=== PATIENT | female | born 1975 | race Caucasian/White ===

== ENCOUNTER 2020-11-28 04:24 | Emergency (ER) | payer MEDICAID ==
[~2020-11-28] VITALS: Ht 162.6 cm; Wt 68.0 kg
[2020-11-28] MEDS ORDERED: OMEP40CA21 PO (04:46)
[2020-11-28] MEDS ORDERED: LISI20TA28 PO (04:46)
[2020-11-28 04:50] LABS: BASOPHILS # (AUTO) 0.2 X10'3 (0-0.2); BASOPHILS % (AUTO) 1.1 % (0-1); EOSINOPHILS # (AUTO) 0.2 X10'3 (0-0.9); EOSINOPHILS % (AUTO) 1.3 % (0-6); HEMATOCRIT 43.8 % (35.0-45.0); HEMOGLOBIN 14.5 g/dl (12.0-16.0); LYMPHOCYTES # (AUTO) 4.1 X10'3 (1.1-4.8); MEAN CORPUSCULAR HEMOGLOBIN 36.9 PG (27.0-31.0); MEAN CORPUSCULAR HGB CONC 33.2 g/dL (33.0-36.5); MEAN PLATELET VOLUME 8.7 FL (7.4-10.4); MONOCYTES # (AUTO) 1.5 X10'3 (0-0.9); MONOCYTES % (AUTO) 9.3 % (2-12); NEUTROPHILS # (AUTO) 10.3 X10'3 (1.8-7.7); NEUTROPHILS % (AUTO) 63.3 % (42-75); PLATELET COUNT 300 X10'3 (140-440); RED BLOOD COUNT 3.95 X10'6 (4.20-5.60); RED CELL DISTRIBUTION WIDTH 17.2 % (11.5-14.5); WHITE BLOOD COUNT 16.3 X10'3 (4.5-11.0)
[2020-11-28] MEDS ORDERED: ondansetron/PF 4mg/2ml inj IV ONE ×2 (04:50→09:40)
[2020-11-28] MEDS ORDERED: normal saline 1000ML IV soln IVB ONE (04:50)
[2020-11-28 04:53] LABS: URINE HCG NEGATIVE (NEG)
[2020-11-28 04:57] LABS: CLARITY,URINE SLIGHTLY CLOUDY (Clear); COLOR,URINE YELLOW (Yellow); GLUCOSE, URINE NEGATIVE (Neg); KETONES,URINE NEGATIVE (Neg); LEUKOCYTE ESTERASE ,URINE NEGATIVE (Neg); NITRITES, URINE POSITIVE (Neg); OCCULT BLOOD,URINE TRACE-INTACT (Neg); PROTEIN,URINE TRACE mg/dl (Neg)
[2020-11-28] MEDS: morphine 4 MG/ML inj SYRINge IV PRN ×3 (05:00→07:56)
[2020-11-28 05:02] LABS: UA COLLECTION TYPE CLN CATCH MIDSTREAM
[2020-11-28 05:03] LABS: ALANINE AMINOTRANSFERASE 56 U/L (12-78); ALBUMIN 3.5 G/DL (3.4-5.0); ALKALINE PHOSPHATASE 172 IU/L (46-116); ANION GAP 11 (8-16); ASPARTATE AMINO TRANSFERASE 128 U/L (10-37); BILIRUBIN,TOTAL 0.9 MG/DL (0.1-1.0); BLOOD UREA NITROGEN 7 MG/DL (7-18); BUN/CREATININE RATIO 8.2 (6.6-38.0); CALCIUM 8.4 MG/DL (8.5-10.1); CHLORIDE 105 MMOL/L (99-107); CREATININE 0.85 MG/DL (0.40-0.90); GLUCOSE 106 MG/DL (70-104); POTASSIUM 3.7 MMOL/L (3.5-5.1); SODIUM 140 MMOL/L (135-145); TOTAL CARBON DIOXIDE 24.4 MMOL/L (24-32); TOTAL PROTEIN 7.1 G/DL (6.4-8.2); eGFR 73 ML/MIN
[2020-11-28 05:05] LABS: WBC,URINE 0-4 /HPF (0-4)
[2020-11-28 05:06] LABS: BACTERIA,URINE 4+ /HPF (Neg); SQUAMOUS EPITHELIAL CELL,UR FEW /LPF (FEW)
[2020-11-28] MEDS ORDERED: haloperidol lactate 5mg/ml inj IM ONE (05:10)
[2020-11-28 05:15] LABS: LIPASE 2273 U/L (73-393)
[2020-11-28 05:18] LABS: PLATELET ESTIMATE NORMAL
[2020-11-28 05:19] LABS: ANISOCYTOSIS 1+
[2020-11-28 05:28] LABS: ETHANOL < 0.010 GM/DL (0.0-0.010)
[2020-11-28] MEDS ORDERED: normal saline 1000ml 1,000 ML IV ONE (06:15)
[2020-11-28 08:23] LABS: URINE AMPHETAMINE SCREEN NEGATIVE (Neg); URINE BARBITUATE SCREEN NEGATIVE (Neg); URINE BENZODIAZEPINES SCREEN NEGATIVE (Neg); URINE CANNABINOID SCREEN NEGATIVE (Neg); URINE COCAINE SCREEN NEGATIVE (Neg); URINE METHADONE SCREEN NEGATIVE (Neg); URINE OPIATE SCREEN POSITIVE (Neg); URINE PHENCYCLIDINE SCREEN NEGATIVE (Neg)
[2020-11-28] MEDS ORDERED: OXYC-658 PO (09:39)
[2020-11-28] MEDS ORDERED: ONDA4TAB6 PO (09:39)
[2020-11-28] MEDS ORDERED: OXYcodone (OXYCONTIN) Ext Release 15 MG TAB.SR.12H PO ONE (09:40)
[2020-11-28 09:56] VITALS: BP 165/102
== END 2020-11-28 10:03 | disposition home or self-care (01) ==
LOC: ER 04:25
DX: K85.90 Acute pancreatitis without necrosis or infection, unspecified (principal); R10.84 Generalized abdominal pain; R11.2 Nausea with vomiting, unspecified; R19.7 Diarrhea, unspecified; I10 Essential (primary) hypertension; K21.9 Gastro-esophageal reflux disease without esophagitis; F17.200 Nicotine dependence, unspecified, uncomplicated; Z72.89 Other problems related to lifestyle; Z98.890 Other specified postprocedural states; Z79.899 Other long term (current) drug therapy
CPT/HCPCS: 36415; 74176; 80053; 80305; 80320; 81001; 81025; 83690; 85008; 85025; 87088; 96361; 96372; 96374; 96375; 96376; 99285; J1630; J2270; J2405; J7030; 87077; 87186

== ENCOUNTER 2020-12-13 12:34 | Emergency (ER) | payer MEDICAID ==
[~2020-12-13] VITALS: Ht 162.6 cm; Wt 68.2 kg
[~2020-12-13 12:34] MED LIST: LISI20TA28 PO; OMEP40CA21 PO; ONDA4TAB6 PO; OXYC-658 PO
[2020-12-13 12:54] VITALS: BP 118/87
[2020-12-13] MEDS ORDERED: ALBU6.7H9 INH (13:15)
== END 2020-12-13 13:17 | disposition home or self-care (01) ==
LOC: ER 12:34
DX: J06.9 Acute upper respiratory infection, unspecified (principal); Z20.822 Contact with and (suspected) exposure to COVID-19; R05 Cough; I10 Essential (primary) hypertension; J45.909 Unspecified asthma, uncomplicated; K21.9 Gastro-esophageal reflux disease without esophagitis; F17.200 Nicotine dependence, unspecified, uncomplicated; Z98.890 Other specified postprocedural states; Z72.89 Other problems related to lifestyle; Z79.899 Other long term (current) drug therapy
CPT/HCPCS: 71045; 99283

== ENCOUNTER 2020-12-16 09:53 | Emergency (ER) | payer MEDICAID ==
[~2020-12-16] VITALS: Ht 162.6 cm; Wt 68.2 kg
[~2020-12-16 09:53] MED LIST changes: +ALBU6.7H9 INH
[2020-12-16] MEDS ORDERED: FLUC150T66 PO (10:32)
== END 2020-12-16 11:56 | disposition home or self-care (01) ==
LOC: ER 09:53
DX: T28.3XXA Burn of internal genitourinary organs, initial encounter (principal); N39.0 Urinary tract infection, site not specified; I10 Essential (primary) hypertension; J45.909 Unspecified asthma, uncomplicated; K21.9 Gastro-esophageal reflux disease without esophagitis; Z98.890 Other specified postprocedural states; Z72.89 Other problems related to lifestyle; Z79.899 Other long term (current) drug therapy; Z79.2 Long term (current) use of antibiotics; X08.8XXA Exposure to other specified smoke, fire and flames, initial encounter; Y93.89 Activity, other specified; Y92.89 Other specified places as the place of occurrence of the external cause; Y99.8 Other external cause status
CPT/HCPCS: 99283

== ENCOUNTER 2022-09-27 17:37 | Emergency (ER) | payer MEDICAID ==
[~2022-09-27] VITALS: Ht 165.1 cm; Wt 70.0 kg
[~2022-09-27 17:37] MED LIST changes: +ALBU6.7H14 INH; -ALBU6.7H9 INH; -OXYC-658 PO
[2022-09-27 17:54] LABS: BASOPHILS # (AUTO) 0.2 X10'3 (0-0.2); BASOPHILS % (AUTO) 1.3 % (0-1); EOSINOPHILS # (AUTO) 0.2 X10'3 (0-0.9); EOSINOPHILS % (AUTO) 1.8 % (0-6); HEMATOCRIT 43.8 % (35.0-45.0); HEMOGLOBIN 14.4 g/dl (12.0-16.0); LYMPHOCYTES # (AUTO) 4.4 X10'3 (1.1-4.8); LYMPHOCYTES % (AUTO) 36.6 % (21-51); MEAN CORPUSCULAR HEMOGLOBIN 33.9 PG (27.0-31.0); MEAN CORPUSCULAR VOLUME 102.9 FL (78-98); MEAN PLATELET VOLUME 9.1 FL (7.4-10.4); MONOCYTES # (AUTO) 0.8 X10'3 (0-0.9); NEUTROPHILS # (AUTO) 6.4 X10'3 (1.8-7.7); NEUTROPHILS % (AUTO) 53.3 % (42-75); PLATELET COUNT 250 X10'3 (140-440); RED BLOOD COUNT 4.26 X10'6 (4.20-5.60); RED CELL DISTRIBUTION WIDTH 20.2 % (11.5-14.5); WHITE BLOOD COUNT 12.1 X10'3 (4.5-11.0)
[2022-09-27 18:08] VITALS: BP 135/97
[2022-09-27 18:08] LABS: ALANINE AMINOTRANSFERASE 86 U/L (12-78); ALBUMIN 3.2 G/DL (3.4-5.0); ALBUMIN/GLOBULIN RATIO 0.8 (1.1-1.5); ALKALINE PHOSPHATASE 193 IU/L (46-116); ANION GAP 14 (8-16); ASPARTATE AMINO TRANSFERASE 255 U/L (10-37); BILIRUBIN,TOTAL 0.7 MG/DL (0.1-1.0); BLOOD UREA NITROGEN 5 MG/DL (7-18); BUN/CREATININE RATIO 6.7 (10.0-20.0); CHLORIDE 104 MMOL/L (99-107); CREATININE 0.75 MG/DL (0.40-0.90); GLUCOSE 106 MG/DL (70-104); POTASSIUM 3.4 MMOL/L (3.5-5.1); SODIUM 142 MMOL/L (135-145); TOTAL CARBON DIOXIDE 24.2 MMOL/L (24-32); TOTAL PROTEIN 7.3 G/DL (6.4-8.2); eGFR 84 ML/MIN
[2022-09-27 18:29] LABS: CLARITY,URINE SLIGHTLY CLOUDY (Clear); COLOR,URINE YELLOW (Yellow); GLUCOSE, URINE NEGATIVE (Neg); KETONES,URINE NEGATIVE (Neg); LEUKOCYTE ESTERASE ,URINE TRACE (Neg); NITRITES, URINE NEGATIVE (Neg); OCCULT BLOOD,URINE NEGATIVE (Neg); PH,URINE 6.5 (4.8-8.0); PROTEIN,URINE NEGATIVE (Neg); UROBILINOGEN,URINE 0.2 E.U/dL (0.2-1.0)
[2022-09-27 18:32] LABS: URINE HCG NEGATIVE (NEG)
[2022-09-27 18:48] LABS: LARGE PLATELETS FEW; PLATELET ESTIMATE NORMAL
[2022-09-27 18:49] LABS: ANISOCYTOSIS 3+
[2022-09-27 19:07] LABS: RBC,URINE NONE SEEN /HPF (0-2); UA COLLECTION TYPE CLN CATCH MIDSTREAM; WBC,URINE 0-4 /HPF (0-4)
[2022-09-27 19:08] LABS: BACTERIA,URINE 4+ /HPF (Neg); MUCUS STRANDS NONE SEEN /LPF (Neg); SQUAMOUS EPITHELIAL CELL,UR MANY /LPF (FEW)
== END 2022-09-27 20:12 | disposition left against medical advice (07) ==
LOC: ER 17:38
DX: R07.9 Chest pain, unspecified (principal); Z53.21 Procedure and treatment not carried out due to patient leaving prior to being seen by health care provider
CPT/HCPCS: 36415; 80053; 81001; 81025; 83880; 84484; 85008; 85025; 93005; 99281

== ENCOUNTER 2024-05-29 11:46 | Emergency (ER) | payer MEDICAID, OTHER ==
[~2024-05-29] VITALS: Ht 162.6 cm; Wt 63.6 kg
[2024-05-29 13:07] VITALS: BP 136/70; PULSE 70; RESP 17; TEMP 98; O2SAT 99
== END 2024-05-29 13:07 | disposition home or self-care (01) ==
LOC: ER 11:46
DX: S93.692A Other sprain of left foot, initial encounter (principal); S93.492A Sprain of other ligament of left ankle, initial encounter; I10 Essential (primary) hypertension; J45.909 Unspecified asthma, uncomplicated; K21.9 Gastro-esophageal reflux disease without esophagitis; F10.90 Alcohol use, unspecified, uncomplicated; Z79.899 Other long term (current) drug therapy; Y90.9 Presence of alcohol in blood, level not specified; W18.40XA Slipping, tripping and stumbling without falling, unspecified, initial encounter; Y93.89 Activity, other specified; Y92.89 Other specified places as the place of occurrence of the external cause; Y99.8 Other external cause status
CPT/HCPCS: 73610; 73630; 99284; A6449

== ENCOUNTER 2024-06-22 12:22 | Inpatient (IN) | payer OTHER ==
[~2024-06-22] VITALS: Ht 162.6 cm; Wt 62.3 kg
[2024-06-22 12:57] LABS: BASOPHILS # (AUTO) 0.1 X10'3 (0-0.2); BASOPHILS % (AUTO) 0.8 % (0-1); EOSINOPHILS # (AUTO) 0.1 X10'3 (0-0.9); HEMATOCRIT 39.9 % (35.0-45.0); HEMOGLOBIN 13.4 g/dl (12.0-16.0); LYMPHOCYTES # (AUTO) 2.1 X10'3 (1.1-4.8); LYMPHOCYTES % (AUTO) 23.8 % (21-51); MEAN CORPUSCULAR HEMOGLOBIN 37.7 PG (27.0-31.0); MEAN CORPUSCULAR HGB CONC 33.7 g/dL (33.0-36.5); MEAN CORPUSCULAR VOLUME 112.1 FL (78-98); MEAN PLATELET VOLUME 9.1 FL (7.4-10.4); MONOCYTES # (AUTO) 0.6 X10'3 (0-0.9); MONOCYTES % (AUTO) 6.9 % (2-12); NEUTROPHILS % (AUTO) 67.5 % (42-75); PLATELET COUNT 246 X10'3 (140-440); RED BLOOD COUNT 3.56 X10'6 (4.20-5.60); RED CELL DISTRIBUTION WIDTH 15.4 % (11.5-14.5); WHITE BLOOD COUNT 8.8 X10'3 (4.5-11.0)
[2024-06-22 13:09] LABS: ALBUMIN 3.4 G/DL (3.4-5.0); ANION GAP 8 (8-16); BLOOD UREA NITROGEN 8 MG/DL (7-18); BUN/CREATININE RATIO 15.1 (10.0-20.0); CALCIUM 8.8 MG/DL (8.5-10.1); CHLORIDE 104 MMOL/L (99-107); CREATININE 0.53 MG/DL (0.40-0.90); GLUCOSE 96 MG/DL (70-104); POTASSIUM 4.4 MMOL/L (3.5-5.1); SODIUM 142 MMOL/L (135-145); TOTAL CARBON DIOXIDE 30.1 MMOL/L (24-32); eCRCL 113 ML/MIN; eGFR > 90 ML/MIN
[2024-06-22 13:13] LABS: APTT 25 SECONDS (22-32); INR 1.1 INR; PROTHROMBIN TIME 11.5 SECONDS (9.0-12.0)
[2024-06-22] MEDS: GADOTERATE MEGLUMINE 7.5 MMOL/15 ML VIAL IV ONE (22:13)
[2024-06-23] MEDS ORDERED: ondansetron/PF 4mg/2ml inj IV PRN (00:20)
[2024-06-23] MEDS ORDERED: docusate sod 100mg capsule PO PRN (00:20)
[2024-06-23] MEDS ORDERED: potassium Cl 40MEQ/1/2NS 520ml 520 ML IV PRN (00:20)
[2024-06-23] MEDS ORDERED: magnesium sulf-water 4G/100mL 100 ML IV PRN (00:20)
[2024-06-23] MEDS ORDERED: magnesium Cl slow-release 64mg tablet PO PRN (00:20)
[2024-06-23] MEDS ORDERED: potassium Cl 20 mEq SR tablet PO PRN ×2 (00:20)
[2024-06-23] MEDS ORDERED: magnesium sulf-water 2g/50mL 50 ML IV PRN (00:20)
[2024-06-23] MEDS ORDERED: magnesium hydroxide 30ml (MOM) UD suspension PO PRN (00:20)
[2024-06-23] MEDS ORDERED: NO HOME MEDS (00:50)
[2024-06-23 03:34] LABS: % IRON SATURATION 34 % (11-46); IRON 75 UG/DL (49-151); TOTAL IRON BINDING CAPACITY 222 UG/DL (259-388)
[2024-06-23 03:45] LABS: POTASSIUM 4.4 MMOL/L (3.5-5.1)
[2024-06-23 06:59] LABS: ABSOLUTE RETICS # 43200 /CUMM (23000-93000); BASOPHILS # (AUTO) 0.1 X10'3 (0-0.2); BASOPHILS % (AUTO) 1.1 % (0-1); EOSINOPHILS # (AUTO) 0.2 X10'3 (0-0.9); EOSINOPHILS % (AUTO) 2.1 % (0-6); HEMATOCRIT 35.3 % (35.0-45.0); HEMOGLOBIN 11.9 g/dl (12.0-16.0); LYMPHOCYTES # (AUTO) 2.4 X10'3 (1.1-4.8); LYMPHOCYTES % (AUTO) 31.1 % (21-51); MEAN CORPUSCULAR HEMOGLOBIN 37.5 PG (27.0-31.0); MEAN CORPUSCULAR HGB CONC 33.8 g/dL (33.0-36.5); MEAN CORPUSCULAR VOLUME 111.2 FL (78-98); MONOCYTES # (AUTO) 0.7 X10'3 (0-0.9); MONOCYTES % (AUTO) 9.1 % (2-12); NEUTROPHILS # (AUTO) 4.5 X10'3 (1.8-7.7); NEUTROPHILS % (AUTO) 56.6 % (42-75); PLATELET COUNT 195 X10'3 (140-440); RED BLOOD COUNT 3.18 X10'6 (4.20-5.60); RED CELL DISTRIBUTION WIDTH 15.3 % (11.5-14.5); RETICULOCYTE % (AUTO) 1.4 % (0.5-1.5); WHITE BLOOD COUNT 7.9 X10'3 (4.5-11.0)
[2024-06-23] MEDS: K and/or MAG REPLACEMENT MC SCH (08:00)
[2024-06-23 08:01] LABS: PLATELET ESTIMATE NORMAL; TOTAL CELLS COUNTED 100
[2024-06-23 08:16] VITALS: BP 151/93; PULSE 69; RESP 16; TEMP 98.4; O2SAT 99
[2024-06-23] MEDS: heparin, porcine 5000 units/ml vial SQ SCH (08:50)
[2024-06-23] MEDS: folic acid 1mg tablet PO SCH (08:50)
[2024-06-23] MEDS: cyanocobalamin 500mcg tablet PO SCH (08:50)
[2024-06-23 08:51] LABS: HIV ANTIBODY 1&2 RAPID NON-REACTIVE (Neg)
[2024-06-23] MEDS: triamcinolone acet 0.1% cream 15gm TP SCH (08:51)
[2024-06-23 10:00] VITALS: BP 154/96; PULSE 71; RESP 14; TEMP 98.3; O2SAT 99
[2024-06-23 11:00] LABS: BILIRUBIN,URINE NEGATIVE (Neg); CLARITY,URINE CLEAR (Clear); COLOR,URINE YELLOW (Yellow); GLUCOSE, URINE NEGATIVE (Neg); KETONES,URINE NEGATIVE (Neg); LEUKOCYTE ESTERASE ,URINE NEGATIVE (Neg); NITRITES, URINE NEGATIVE (Neg); OCCULT BLOOD,URINE NEGATIVE (Neg); PH,URINE 7.5 (4.8-8.0); PROTEIN,URINE NEGATIVE (Neg)
[2024-06-23] MEDS: FLU VACC TS2024-25(6MOS UP)/PF 45 MCG/0.5 ML SYRINGE IMVAC ONE (11:05)
[2024-06-23 11:10] LABS: UA COLLECTION TYPE VOIDED
[2024-06-23 13:45] VITALS: RESP 20; O2SAT 98
[2024-06-23] MEDS: GADOTERATE MEGLUMINE 7.5 MMOL/15 ML VIAL IV ONE (17:45)
[2024-06-23 18:00] VITALS: BP 187/97; PULSE 80; RESP 16; TEMP 98.2; O2SAT 96
[2024-06-23] MEDS: acetaminophen 325mg tablet PO PRN (19:29)
[2024-06-23 20:00] VITALS: RESP 16; O2SAT 96
[2024-06-23 22:00] VITALS: BP 134/87; PULSE 84; RESP 16; TEMP 98.1; O2SAT 95
[2024-06-24 06:00] VITALS: BP 149/91; PULSE 74; RESP 16; TEMP 97.9; O2SAT 96
[2024-06-24 06:15] LABS: BASOPHILS # (AUTO) 0.1 X10'3 (0-0.2); BASOPHILS % (AUTO) 0.9 % (0-1); EOSINOPHILS # (AUTO) 0.2 X10'3 (0-0.9); EOSINOPHILS % (AUTO) 2.2 % (0-6); LYMPHOCYTES # (AUTO) 2.3 X10'3 (1.1-4.8); LYMPHOCYTES % (AUTO) 30.9 % (21-51); MEAN CORPUSCULAR HEMOGLOBIN 37.3 PG (27.0-31.0); MEAN CORPUSCULAR HGB CONC 33.3 g/dL (33.0-36.5); MEAN PLATELET VOLUME 9.8 FL (7.4-10.4); MONOCYTES # (AUTO) 0.7 X10'3 (0-0.9); MONOCYTES % (AUTO) 9.6 % (2-12); NEUTROPHILS # (AUTO) 4.1 X10'3 (1.8-7.7); NEUTROPHILS % (AUTO) 56.4 % (42-75); PLATELET COUNT 200 X10'3 (140-440); RED BLOOD COUNT 3.21 X10'6 (4.20-5.60); WHITE BLOOD COUNT 7.4 X10'3 (4.5-11.0)
[2024-06-24 06:27] LABS: ALANINE AMINOTRANSFERASE 26 U/L (12-78); ALBUMIN 2.6 G/DL (3.4-5.0); ALBUMIN/GLOBULIN RATIO 0.7 (1.1-1.5); ALKALINE PHOSPHATASE 169 IU/L (46-116); ANION GAP 6 (8-16); ASPARTATE AMINO TRANSFERASE 44 U/L (10-37); BILIRUBIN,TOTAL 0.6 MG/DL (0.1-1.0); BLOOD UREA NITROGEN 9 MG/DL (7-18); CALCIUM 8.6 MG/DL (8.5-10.1); CHLORIDE 107 MMOL/L (99-107); GLUCOSE 90 MG/DL (70-104); SODIUM 141 MMOL/L (135-145); TOTAL CARBON DIOXIDE 28.1 MMOL/L (24-32); TOTAL PROTEIN 6.2 G/DL (6.4-8.2)
[2024-06-24 06:35] LABS: BUN/CREATININE RATIO 24.3 (10.0-20.0); CREATININE 0.37 MG/DL (0.40-0.90); eCRCL 162 ML/MIN; eGFR > 90 ML/MIN
[2024-06-24 09:35] VITALS: BP 124/77; PULSE 71; RESP 17; TEMP 97.4; O2SAT 95
[2024-06-24 09:35] LABS: GLUCOSE,CSF 61 MG/DL (40-75); TOTAL PROTEIN,CSF 32 MG/DL (15-45)
[2024-06-24 10:11] LABS: APPEARANCE,CSF CLEAR; CSF RBC 1 /CU MM (0); CSF SUPERNATANT COLOR COLORLESS; CSF VOLUME 15 ML; CSF WBC CT 1 /CU MM (0-5); TUBE# COUNTED 1
[2024-06-24 10:15] VITALS: RESP 16; O2SAT 95
[2024-06-24 10:18] LABS: APPEARANCE,CSF CLEAR; CSF RBC 0 /CU MM (0); CSF SUPERNATANT COLOR COLORLESS; CSF VOLUME 15 ML; CSF WBC CT 0 /CU MM (0-5); TUBE# COUNTED 4
[2024-06-24] MEDS: cyanocobalamin 1,000 mcg/ml inj IM SCH (10:40)
[2024-06-24 13:19] LABS: ANTINUCLEAR ANTIBODIES Negative (Negative)
[2024-06-24] MEDS: prednisone 10mg tablet PO ONE ×2 (14:26→21:37)
[2024-06-24] MEDS: ibuprofen 200mg tablet PO ONE (14:27)
[2024-06-24] MEDS: acetaminophen 325mg tablet PO PRN (14:27)
[2024-06-24] MEDS: prednisone 10mg tablet PO SCH (15:08)
[2024-06-24 18:30] VITALS: BP 158/85; PULSE 71; RESP 15; TEMP 97.9; O2SAT 97
[2024-06-24] MEDS: Melatonin 3mg tablet PO SCH (21:37)
[2024-06-24 22:00] VITALS: BP 143/90; PULSE 73; RESP 16; TEMP 97.9; O2SAT 96
[2024-06-25 05:26] LABS: HBSAG SCREEN Negative (Negative); HEP B CORE AB, TOT Negative (Negative); HEPATITIS C VIRUS ANTIBODY Non Reactive (Non Reactive)
[2024-06-25 06:00] VITALS: BP 135/86; PULSE 68; RESP 16; TEMP 98; O2SAT 97
[2024-06-25 06:48] LABS: BASOPHILS # (AUTO) 0.1 X10'3 (0-0.2); BASOPHILS % (AUTO) 1.2 % (0-1); EOSINOPHILS % (AUTO) 0 % (0-6); HEMATOCRIT 36.8 % (35.0-45.0); HEMOGLOBIN 12.1 g/dl (12.0-16.0); LYMPHOCYTES # (AUTO) 1.6 X10'3 (1.1-4.8); MEAN CORPUSCULAR HEMOGLOBIN 36.9 PG (27.0-31.0); MEAN PLATELET VOLUME 9.8 FL (7.4-10.4); MONOCYTES # (AUTO) 0.5 X10'3 (0-0.9); MONOCYTES % (AUTO) 5.1 % (2-12); NEUTROPHILS # (AUTO) 8.4 X10'3 (1.8-7.7); NEUTROPHILS % (AUTO) 78.7 % (42-75); PLATELET COUNT 218 X10'3 (140-440); RED BLOOD COUNT 3.28 X10'6 (4.20-5.60); RED CELL DISTRIBUTION WIDTH 15.1 % (11.5-14.5); WHITE BLOOD COUNT 10.7 X10'3 (4.5-11.0)
[2024-06-25 07:16] LABS: ALANINE AMINOTRANSFERASE 27 U/L (12-78); ALBUMIN 2.7 G/DL (3.4-5.0); ALBUMIN/GLOBULIN RATIO 0.7 (1.1-1.5); ALKALINE PHOSPHATASE 161 IU/L (46-116); ANION GAP 5 (8-16); ASPARTATE AMINO TRANSFERASE 41 U/L (10-37); BILIRUBIN,TOTAL 0.5 MG/DL (0.1-1.0); BLOOD UREA NITROGEN 12 MG/DL (7-18); CALCIUM 8.6 MG/DL (8.5-10.1); CHLORIDE 108 MMOL/L (99-107); GLUCOSE 123 MG/DL (70-104); MAGNESIUM 1.9 MG/DL (1.5-2.4); POTASSIUM 4.8 MMOL/L (3.5-5.1); SODIUM 139 MMOL/L (135-145); TOTAL CARBON DIOXIDE 26.5 MMOL/L (24-32); TOTAL PROTEIN 6.6 G/DL (6.4-8.2); eCRCL 100 ML/MIN; eGFR > 90 ML/MIN
[2024-06-25 07:26] LABS: TRANSFERRIN 194 mg/dL (192-364)
[2024-06-25 09:40] VITALS: RESP 16; O2SAT 97
[2024-06-25] MEDS: prednisone 10mg tablet PO ONE ×3 (09:47→17:48)
[2024-06-25 10:00] VITALS: BP 147/84; PULSE 93; RESP 15; TEMP 98.2; O2SAT 97
[2024-06-25 18:30] VITALS: BP 131/84; PULSE 100; RESP 16; TEMP 97.8; O2SAT 96
[2024-06-25] MEDS ORDERED: prednisone 10mg tablet PO ONE (21:00)
[2024-06-25 22:00] VITALS: BP 155/83; PULSE 96; RESP 18; TEMP 98.2; O2SAT 92
[2024-06-26 06:00] VITALS: BP 139/86; PULSE 65; RESP 16; TEMP 97.7; O2SAT 98
[2024-06-26 06:19] LABS: HEMOGLOBIN A1C 4.5 % (4.5-6.2)
[2024-06-26 06:59] LABS: ALANINE AMINOTRANSFERASE 30 U/L (12-78); ALBUMIN 2.9 G/DL (3.4-5.0); ALBUMIN/GLOBULIN RATIO 0.8 (1.1-1.5); ALKALINE PHOSPHATASE 144 IU/L (46-116); ANION GAP 6 (8-16); ASPARTATE AMINO TRANSFERASE 53 U/L (10-37); BILIRUBIN,TOTAL 0.3 MG/DL (0.1-1.0); BLOOD UREA NITROGEN 13 MG/DL (7-18); CALCIUM 8.7 MG/DL (8.5-10.1); CHLORIDE 109 MMOL/L (99-107); CREATININE 0.52 MG/DL (0.40-0.90); GLUCOSE 94 MG/DL (70-104); MAGNESIUM 2.1 MG/DL (1.5-2.4); POTASSIUM 4.3 MMOL/L (3.5-5.1); SODIUM 142 MMOL/L (135-145); TOTAL CARBON DIOXIDE 26.8 MMOL/L (24-32); TOTAL PROTEIN 6.6 G/DL (6.4-8.2); eCRCL 115 ML/MIN; eGFR > 90 ML/MIN
[2024-06-26] MEDS ORDERED: prednisone 10mg tablet PO ONE ×3 (07:00→21:00)
[2024-06-26 07:20] LABS: BASOPHILS # (AUTO) 0.1 X10'3 (0-0.2); BASOPHILS % (AUTO) 0.6 % (0-1); EOSINOPHILS % (AUTO) 0.2 % (0-6); HEMATOCRIT 37.2 % (35.0-45.0); HEMOGLOBIN 12.1 g/dl (12.0-16.0); LYMPHOCYTES % (AUTO) 20.9 % (21-51); MEAN CORPUSCULAR HEMOGLOBIN 36.4 PG (27.0-31.0); MEAN CORPUSCULAR HGB CONC 32.5 g/dL (33.0-36.5); MEAN CORPUSCULAR VOLUME 111.9 FL (78-98); MEAN PLATELET VOLUME 9.1 FL (7.4-10.4); MONOCYTES % (AUTO) 10.2 % (2-12); NEUTROPHILS # (AUTO) 6.7 X10'3 (1.8-7.7); NEUTROPHILS % (AUTO) 68.1 % (42-75); PLATELET COUNT 231 X10'3 (140-440); RED BLOOD COUNT 3.32 X10'6 (4.20-5.60); RED CELL DISTRIBUTION WIDTH 14.9 % (11.5-14.5); WHITE BLOOD COUNT 9.8 X10'3 (4.5-11.0)
[2024-06-26 08:00] VITALS: RESP 16; O2SAT 98
[2024-06-26] MEDS: methylPREDNISolone SOD SUCC 1000 MG in D5W 50ml IVPB (58ML) IV SCH (08:49)
[2024-06-26 10:00] VITALS: BP 131/87; PULSE 76; RESP 18; TEMP 98.1; O2SAT 99
[2024-06-26] MEDS: morphine 2 MG/ML inj. syringe IV PRN (17:53)
[2024-06-26 18:30] VITALS: BP 138/89; PULSE 83; RESP 16; TEMP 97.9; O2SAT 95
[2024-06-26] MEDS: mag hydrox/Alum hydrox/simeth 30ml oral suspension PO PRN (19:33)
[2024-06-26 22:00] VITALS: BP 148/88; PULSE 76; RESP 18; TEMP 97.6; O2SAT 96
[2024-06-27 06:00] VITALS: BP 135/84; PULSE 80; RESP 18; TEMP 97.9; O2SAT 95
[2024-06-27] MEDS ORDERED: prednisone 10mg tablet PO ONE ×3 (07:00→21:00)
[2024-06-27 07:06] LABS: BASOPHILS % (AUTO) 0.1 % (0-1); EOSINOPHILS % (AUTO) 0 % (0-6); HEMATOCRIT 39.1 % (35.0-45.0); HEMOGLOBIN 12.7 g/dl (12.0-16.0); LYMPHOCYTES # (AUTO) 1.8 X10'3 (1.1-4.8); LYMPHOCYTES % (AUTO) 13.3 % (21-51); MEAN CORPUSCULAR HGB CONC 32.5 g/dL (33.0-36.5); MEAN CORPUSCULAR VOLUME 110.7 FL (78-98); MEAN PLATELET VOLUME 9.7 FL (7.4-10.4); MONOCYTES # (AUTO) 1.6 X10'3 (0-0.9); MONOCYTES % (AUTO) 11.8 % (2-12); NEUTROPHILS # (AUTO) 10.3 X10'3 (1.8-7.7); NEUTROPHILS % (AUTO) 74.8 % (42-75); PLATELET COUNT 256 X10'3 (140-440); RED BLOOD COUNT 3.53 X10'6 (4.20-5.60); RED CELL DISTRIBUTION WIDTH 14.8 % (11.5-14.5); WHITE BLOOD COUNT 13.8 X10'3 (4.5-11.0)
[2024-06-27 07:47] VITALS: RESP 18; O2SAT 95
[2024-06-27 07:47] LABS: ALANINE AMINOTRANSFERASE 41 U/L (12-78); ALBUMIN 2.9 G/DL (3.4-5.0); ALBUMIN/GLOBULIN RATIO 0.7 (1.1-1.5); ALKALINE PHOSPHATASE 135 IU/L (46-116); ANION GAP 9 (8-16); ASPARTATE AMINO TRANSFERASE 60 U/L (10-37); BILIRUBIN,TOTAL 0.2 MG/DL (0.1-1.0); BLOOD UREA NITROGEN 18 MG/DL (7-18); BUN/CREATININE RATIO 36.7 (10.0-20.0); CALCIUM 8.7 MG/DL (8.5-10.1); CHLORIDE 107 MMOL/L (99-107); CREATININE 0.49 MG/DL (0.40-0.90); GLUCOSE 84 MG/DL (70-104); POTASSIUM 4.3 MMOL/L (3.5-5.1); SODIUM 142 MMOL/L (135-145); TOTAL CARBON DIOXIDE 26.2 MMOL/L (24-32); TOTAL PROTEIN 6.8 G/DL (6.4-8.2); eCRCL 123 ML/MIN; eGFR > 90 ML/MIN
[2024-06-27 10:00] VITALS: BP 139/83; PULSE 85; RESP 16; TEMP 98.8; O2SAT 97
[2024-06-27] MEDS: normal saline 1000ml 1,000 ML IV ONE (12:45)
[2024-06-27] MEDS: morphine 2 MG/ML inj. syringe IV PRN (16:48)
[2024-06-27 18:00] VITALS: BP 132/79; PULSE 76; RESP 16; TEMP 98.7; O2SAT 97
[2024-06-27 22:00] VITALS: BP 132/84; PULSE 90; RESP 16; TEMP 98.8; O2SAT 97
[2024-06-27] MEDS: benzonatate 100mg capsule PO PRN (22:51)
[2024-06-28 06:00] VITALS: BP 126/81; PULSE 80; RESP 16; TEMP 98.2; O2SAT 97
[2024-06-28 06:01] LABS: BASOPHILS % (AUTO) 0.1 % (0-1); EOSINOPHILS % (AUTO) 0 % (0-6); HEMATOCRIT 34.7 % (35.0-45.0); HEMOGLOBIN 11.5 g/dl (12.0-16.0); LYMPHOCYTES # (AUTO) 1.6 X10'3 (1.1-4.8); LYMPHOCYTES % (AUTO) 20.5 % (21-51); MEAN CORPUSCULAR HEMOGLOBIN 36.7 PG (27.0-31.0); MEAN CORPUSCULAR HGB CONC 33.2 g/dL (33.0-36.5); MEAN CORPUSCULAR VOLUME 110.5 FL (78-98); MEAN PLATELET VOLUME 9.7 FL (7.4-10.4); MONOCYTES % (AUTO) 13.2 % (2-12); NEUTROPHILS # (AUTO) 5.1 X10'3 (1.8-7.7); NEUTROPHILS % (AUTO) 66.2 % (42-75); PLATELET COUNT 216 X10'3 (140-440); RED BLOOD COUNT 3.14 X10'6 (4.20-5.60); RED CELL DISTRIBUTION WIDTH 14.9 % (11.5-14.5); WHITE BLOOD COUNT 7.7 X10'3 (4.5-11.0)
[2024-06-28 06:20] LABS: ALANINE AMINOTRANSFERASE 38 U/L (12-78); ALBUMIN 2.6 G/DL (3.4-5.0); ALBUMIN/GLOBULIN RATIO 0.7 (1.1-1.5); ALKALINE PHOSPHATASE 113 IU/L (46-116); ANION GAP 8 (8-16); ASPARTATE AMINO TRANSFERASE 43 U/L (10-37); BILIRUBIN,TOTAL 0.3 MG/DL (0.1-1.0); BLOOD UREA NITROGEN 15 MG/DL (7-18); BUN/CREATININE RATIO 29.4 (10.0-20.0); CALCIUM 8.5 MG/DL (8.5-10.1); CHLORIDE 108 MMOL/L (99-107); CREATININE 0.51 MG/DL (0.40-0.90); GLUCOSE 98 MG/DL (70-104); POTASSIUM 3.8 MMOL/L (3.5-5.1); SODIUM 144 MMOL/L (135-145); TOTAL CARBON DIOXIDE 27.6 MMOL/L (24-32); TOTAL PROTEIN 6.1 G/DL (6.4-8.2); eCRCL 118 ML/MIN; eGFR > 90 ML/MIN
[2024-06-28] MEDS ORDERED: prednisone 10mg tablet PO ONE ×2 (07:00→21:00)
[2024-06-28 10:00] VITALS: BP 145/90; PULSE 79; RESP 16; TEMP 98.5; O2SAT 100
[2024-06-28] MEDS ORDERED: CYAN100T47 PO (10:51)
[2024-06-28] MEDS ORDERED: FOLI1TAB27 PO (10:51)
[2024-06-29] MEDS ORDERED: prednisone 10mg tablet PO ONE (07:00)
== END 2024-06-28 12:25 | disposition home or self-care (01) | DRG 552 ==
LOC: ER 12:23 → ED HOLD 20:35 → ORTHO 4S 06-23 08:37
PROVIDERS: ADMIT Internal Medicine Critical Care Medicine; ATTEND Family Medicine
PROC: 009U3ZX Drainage of Spinal Canal, Percutaneous Approach, Diagnostic (ICD-10-PCS; principal; 2024-06-24)
DX: M48.07 Spinal stenosis, lumbosacral region (principal); R53.1 Weakness; R20.0 Anesthesia of skin; G83.9 Paralytic syndrome, unspecified; I10 Essential (primary) hypertension; J45.909 Unspecified asthma, uncomplicated; K21.9 Gastro-esophageal reflux disease without esophagitis; R27.0 Ataxia, unspecified; G62.9 Polyneuropathy, unspecified; R22.1 Localized swelling, mass and lump, neck; D53.1 Other megaloblastic anemias, not elsewhere classified; L40.9 Psoriasis, unspecified; F17.210 Nicotine dependence, cigarettes, uncomplicated
CPT/HCPCS: 36415; 62328; 70450; 70553; 71045; 72156; 72157; 72158; 80048; 80053; 81003; 82607; 82728; 82746; 82945; 82948; 83036; 83540; 83550; 83615; 83735; 84132; 84157; 84466; 85007; 85025; 85045; 85610; 85730; 86038; 86703; 86704; 86803; 87015; 87070; 87081; 87340; 87522; 89051; 90686; 92508; 92616; 93005; 97116; 97161; 97530; 99285; A4649; A6449; G0378; J1644; J2270; J2919; J3420; J7030; J7060; J7120; J7512